=== PATIENT | female | born 1950 | race Caucasian/White ===

== ENCOUNTER 2023-08-26 14:18 | Inpatient (IN) | payer OTHER, MEDICAID ==
[~2023-08-26] VITALS: Ht 162.6 cm; Wt 49.9 kg
[2023-08-26 14:23] VITALS: BP 118/98; PULSE 98; RESP 16; TEMP 98; O2SAT 97
[2023-08-26 15:27] LABS: BASOPHILS % (AUTO) 0.4 % (0.0-2.0); EOSINOPHILS # (AUTO) 0.1 K/uL (0-0.4); EOSINOPHILS % (AUTO) 0.7 % (0.0-4.0); HEMATOCRIT 26.7 % (36-48); HEMOGLOBIN 8.6 g/dL (12.0-16.0); LYMPHOCYTES # (AUTO) 1.3 K/uL (2.5-16.5); LYMPHOCYTES % (AUTO) 11.7 % (20.5-51.1); MEAN CORPUSCULAR HEMOGLOBIN 26 pg (27-31); MEAN CORPUSCULAR HGB CONC 32 g/dL (33-37); MONOCYTES # (AUTO) 0.9 K/uL (0.8-1.0); MONOCYTES % (AUTO) 8.1 % (1.7-9.3); NEUTROPHILS # (AUTO) 8.9 K/uL (1.8-7.7); NEUTROPHILS % (AUTO) 79.1 % (42.2-75.2); PLATELET COUNT (AUTO) 377 K/uL (140-450); RED BLOOD CELL COUNT(AUTO) 3.26 MIL/uL (4.20-5.40); RED CELL DISTRIBUTION WIDTH 19.7 % (11.6-13.7); WHITE BLOOD COUNT (AUTO) 11.2 K/uL (4.8-10.8)
[2023-08-26 15:42] LABS: INR 1.03 (0.8-1.2); PARTIAL THROMBOPLASTIN TIME 26.5 secs (22-35.6); PROTHROMBIN TIME 10.8 secs (10.8-13.4)
[2023-08-26 15:48] LABS: ANION GAP 16.3 (8-16); CALCIUM 10.3 mg/dL (8.5-10.1); CARBON DIOXIDE 19.2 mmol/L (21-32); CHLORIDE 104 mmol/L (98-107); GLUCOSE 99 mg/dL (74-106); POTASSIUM 4.5 mmol/L (3.5-5.1); SODIUM SERUM 135 mmol/L (136-145); UREA NITROGEN, BLOOD 54 mg/dL (7-18)
[2023-08-26 15:49] LABS: ALANINE AMINOTRANSFERASE 14 U/L (12-78); ALBUMIN 1.8 g/dL (3.4-5.0); ALKALINE PHOSPHATASE 75 U/L (50-136); ASPARTATE AMINOTRANSFERASE 27 U/L (15-37); BILIRUBIN,DIRECT 0.1 mg/dL (0.0-0.3); TOTAL BILIRUBIN 0.4 mg/dL (0.0-1.0); TOTAL PROTEIN, SERUM 6.7 g/dL (6.4-8.2)
[2023-08-26] MEDS: LORazepam 1 MG TAB PO ONE (18:17)
[2023-08-26] MEDS: NACL 0.9% 1,000 ML IV ONE (18:57)
[2023-08-26] MEDS ORDERED: DOCU-299 PO (19:12)
[2023-08-26] MEDS ORDERED: ATRN INH (19:12)
[2023-08-26] MEDS ORDERED: AMOX500C25 PO (19:12)
[2023-08-26] MEDS ORDERED: HYOS-83 PO (19:12)
[2023-08-26] MEDS ORDERED: ONDA-188 PO (19:12)
[2023-08-26] MEDS ORDERED: TYL650S RC (19:12)
[2023-08-26] MEDS ORDERED: [UNRECOGNIZED DRUG - CODE] PO (19:12)
[2023-08-26] MEDS ORDERED: LORA-476 PO (19:12)
[2023-08-26] MEDS ORDERED: BISA-279 RC (19:12)
[2023-08-26] MEDS ORDERED: [UNRECOGNIZED DRUG - CODE] PO (19:12)
[2023-08-26 19:45] LABS: APPEARANCE,URINE SL CLOUDY (CLEAR); BILIRUBIN,URINE NEGATIVE (NEGATIVE); BLOOD, URINE TRACE-I (NEGATIVE); LEUKOCYTE ESTERASE ,URINE NEGATIVE (NEGATIVE); NITRITE, URINE NEGATIVE (NEGATIVE); PROTEIN,URINE TRACE (NEGATIVE); UGLUCOSE NEGATIVE (NEGATIVE); UROBILINOGEN,URINE 0.2 EU/dL (0.2 - 1)
[2023-08-26 19:46] LABS: COLOR,URINE AMBER (YELLOW)
[2023-08-26 19:56] LABS: BACTERIA,URINE FEW /HPF (None Seen); RBC,URINE 0-5 /HPF (0-5); SQUAMOUS EPITHELIAL CELL,UR 4-10 (MOD) /LPF (0-3 (FEW)); WBC,URINE 0-5 /HPF (0-5)
[2023-08-26 20:14] LABS: BASOPHILS % (AUTO) 0.4 % (0.0-2.0); EOSINOPHILS % (AUTO) 0.4 % (0.0-4.0); HEMATOCRIT 26.8 % (36-48); HEMOGLOBIN 8.3 g/dL (12.0-16.0); LYMPHOCYTES # (AUTO) 1.6 K/uL (2.5-16.5); LYMPHOCYTES % (AUTO) 13.5 % (20.5-51.1); MEAN CORPUSCULAR HEMOGLOBIN 27 pg (27-31); MEAN CORPUSCULAR HGB CONC 31 g/dL (33-37); MEAN CORPUSCULAR VOLUME 85.4 fL (80-94); MONOCYTES % (AUTO) 8.6 % (1.7-9.3); NEUTROPHILS # (AUTO) 8.9 K/uL (1.8-7.7); NEUTROPHILS % (AUTO) 77.1 % (42.2-75.2); PLATELET COUNT (AUTO) 335 K/uL (140-450); RED BLOOD CELL COUNT(AUTO) 3.14 MIL/uL (4.20-5.40); RED CELL DISTRIBUTION WIDTH 20.3 % (11.6-13.7); WHITE BLOOD COUNT (AUTO) 11.5 K/uL (4.8-10.8)
[2023-08-26 20:29] LABS: ANION GAP 16.9 (8-16); CALCIUM 10.5 mg/dL (8.5-10.1); CARBON DIOXIDE 16.7 mmol/L (21-32); CHLORIDE 105 mmol/L (98-107); CREATININE 1.9 mg/dL (0.6-1.3); GLUCOSE 101 mg/dL (74-106); POTASSIUM 4.6 mmol/L (3.5-5.1); SODIUM SERUM 134 mmol/L (136-145); UREA NITROGEN, BLOOD 53 mg/dL (7-18)
[2023-08-26 21:43] VITALS: PULSE 81
[2023-08-26 21:45] VITALS: PULSE 88; RESP 18; O2SAT 97
[2023-08-27] VITALS: BP 126/53; PULSE 76; PULSE 79; RESP 17; TEMP 98.6; O2SAT 96
[2023-08-27] MEDS ORDERED: HYDROcodone/APAP 5/325 MG 1 TAB TAB PO PRN (03:45)
[2023-08-27 04:00] VITALS: BP 153/60; PULSE 75; PULSE 85; RESP 18; TEMP 98.2; O2SAT 97
[2023-08-27 08:00] VITALS: BP 138/63; PULSE 77; PULSE 78; PULSE 85; RESP 18; TEMP 98.3; O2SAT 96; O2SAT 97
[2023-08-27] MEDS: ACETAMINOPHEN 325 MG TAB PO PRN (09:43)
[2023-08-27] MEDS: LIDOCAINE 5% 1 EA PATCH TP SCH (09:45)
[2023-08-27 12:00] VITALS: BP 146/56; PULSE 75; PULSE 83; RESP 19; TEMP 98; O2SAT 96
[2023-08-27] MEDS ORDERED: DEXT 5% IV SCH (12:35)
[2023-08-27] MEDS ORDERED: [UNRECOGNIZED DRUG - OTHER] IV SCH (12:35)
[2023-08-27] MEDS: DEXT 5% / NACL 0.45% 1,000 ML IV SCH (14:00)
[2023-08-27 16:00] VITALS: BP 136/60; PULSE 77; PULSE 79; RESP 19; TEMP 98; O2SAT 96
[2023-08-27 18:30] LABS: BASOPHILS % (AUTO) 0.3 % (0.0-2.0); EOSINOPHILS # (AUTO) 0.1 K/uL (0-0.4); EOSINOPHILS % (AUTO) 1.3 % (0.0-4.0); HEMATOCRIT 24.3 % (36-48); HEMOGLOBIN 7.8 g/dL (12.0-16.0); LYMPHOCYTES # (AUTO) 1.7 K/uL (2.5-16.5); LYMPHOCYTES % (AUTO) 20.6 % (20.5-51.1); MEAN CORPUSCULAR HEMOGLOBIN 27 pg (27-31); MEAN CORPUSCULAR HGB CONC 32 g/dL (33-37); MEAN CORPUSCULAR VOLUME 82.4 fL (80-94); MONOCYTES # (AUTO) 0.8 K/uL (0.8-1.0); MONOCYTES % (AUTO) 8.9 % (1.7-9.3); NEUTROPHILS # (AUTO) 5.8 K/uL (1.8-7.7); NEUTROPHILS % (AUTO) 68.9 % (42.2-75.2); PLATELET COUNT (AUTO) 315 K/uL (140-450); RED BLOOD CELL COUNT(AUTO) 2.94 MIL/uL (4.20-5.40); RED CELL DISTRIBUTION WIDTH 19.9 % (11.6-13.7); WHITE BLOOD COUNT (AUTO) 8.5 K/uL (4.8-10.8)
[2023-08-27 18:40] LABS: CALCIUM 10.4 mg/dL (8.5-10.1); CARBON DIOXIDE 18.3 mmol/L (21-32); CHLORIDE 109 mmol/L (98-107); CREATININE 1.8 mg/dL (0.6-1.3); GLUCOSE 99 mg/dL (74-106); POTASSIUM 4.3 mmol/L (3.5-5.1); SODIUM SERUM 138 mmol/L (136-145); UREA NITROGEN, BLOOD 57 mg/dL (7-18)
[2023-08-27 20:00] VITALS: BP 154/64; PULSE 80; PULSE 82; RESP 19; TEMP 98.9; O2SAT 97
[2023-08-27] MEDS: GABAPENTIN 100 MG CAP PO SCH (20:21)
[2023-08-28] VITALS: BP 143/57; PULSE 69; PULSE 71; RESP 19; TEMP 97.6; O2SAT 97
[2023-08-28 04:00] VITALS: BP 134/52; PULSE 67; RESP 20; TEMP 98.3; O2SAT 97
[2023-08-28 08:00] VITALS: BP 169/72; PULSE 71; RESP 20; TEMP 97.6; O2SAT 97; O2SAT 98
[2023-08-28 08:52] VITALS: PULSE 71; RESP 20; O2SAT 97
[2023-08-28] MEDS ORDERED: BUDESONIDE 0.5 MG/2 ML NEBU INH SCH (09:00)
[2023-08-28] MEDS: BUDESONIDE INH SCH (09:00)
[2023-08-28] MEDS: FORMOTEROL INH SCH (09:00)
[2023-08-28] MEDS: GLYCOPYRROLATE INH SCH (09:00)
[2023-08-28 11:21] LABS: BASOPHILS % (AUTO) 0.5 % (0.0-2.0); EOSINOPHILS # (AUTO) 0.2 K/uL (0-0.4); EOSINOPHILS % (AUTO) 2.7 % (0.0-4.0); HEMATOCRIT 22.7 % (36-48); HEMOGLOBIN 7.4 g/dL (12.0-16.0); LYMPHOCYTES # (AUTO) 1.4 K/uL (2.5-16.5); LYMPHOCYTES % (AUTO) 18.7 % (20.5-51.1); MEAN CORPUSCULAR HEMOGLOBIN 27 pg (27-31); MEAN CORPUSCULAR HGB CONC 33 g/dL (33-37); MEAN CORPUSCULAR VOLUME 83.1 fL (80-94); MONOCYTES # (AUTO) 0.8 K/uL (0.8-1.0); MONOCYTES % (AUTO) 10.8 % (1.7-9.3); NEUTROPHILS # (AUTO) 5.1 K/uL (1.8-7.7); NEUTROPHILS % (AUTO) 67.3 % (42.2-75.2); PLATELET COUNT (AUTO) 312 K/uL (140-450); RED BLOOD CELL COUNT(AUTO) 2.73 MIL/uL (4.20-5.40); WHITE BLOOD COUNT (AUTO) 7.5 K/uL (4.8-10.8)
[2023-08-28 11:36] LABS: ANION GAP 13.4 (8-16); CALCIUM 9.9 mg/dL (8.5-10.1); CARBON DIOXIDE 19.6 mmol/L (21-32); CHLORIDE 108 mmol/L (98-107); CREATININE 1.8 mg/dL (0.6-1.3); GLUCOSE 104 mg/dL (74-106); SODIUM SERUM 137 mmol/L (136-145); UREA NITROGEN, BLOOD 56 mg/dL (7-18)
[2023-08-28 12:00] VITALS: PULSE 68
[2023-08-28] MEDS ORDERED: NON ADHERENT DRESSING TP PRN (12:45)
[2023-08-28] MEDS ORDERED: FOAM DRESSING TP PRN (12:45)
[2023-08-28] MEDS: HYDRAGUARD CREAM TP SCH (13:02)
[2023-08-28] MEDS: GAUZE TP SCH (13:02)
[2023-08-28] MEDS: FOAM DRESSING TP SCH (13:02)
[2023-08-28] MEDS: NON ADHERENT DRESSING TP SCH (13:03)
[2023-08-28] MEDS ORDERED: traMADol 50 MG TAB PO PRN (13:20)
[2023-08-28] MEDS ORDERED: TRAM50TA3 PO (13:52)
[2023-08-28] MEDS ORDERED: MIRT-120 PO (13:52)
[2023-08-28 14:14] VITALS: BP 131/63; RESP 20; TEMP 97.5
[2023-08-28] MEDS ORDERED: MIRTAZAPINE 15 MG TAB PO SCH (21:00)
[2023-08-29 09:08] LABS: PARATHYROID CALCIUM 9.5 mg/dL (8.7-10.3)
[2023-08-29 15:56] LABS: VITAMIN D, 25-HYDROXY 26.8 ng/mL (30.0-100.0)
== END 2023-08-28 15:10 | disposition home or self-care (01) | DRG 917 ==
LOC: MED 14:18 → MMU 18:03 → MTU 20:56
PROVIDERS: ADMIT Internal Medicine; ATTEND Internal Medicine
DX: T40.2X1A Poisoning by other opioids, accidental (unintentional), initial encounter (principal); E43 Unspecified severe protein-calorie malnutrition; G92.8 Other toxic encephalopathy; Z68.1 Body mass index [BMI] 19.9 or less, adult; N18.30 Chronic kidney disease, stage 3 unspecified; M81.0 Age-related osteoporosis without current pathological fracture; E11.22 Type 2 diabetes mellitus with diabetic chronic kidney disease; E83.52 Hypercalcemia; I12.9 Hypertensive chronic kidney disease with stage 1 through stage 4 chronic kidney disease, or unspecified chronic kidney disease; E11.40 Type 2 diabetes mellitus with diabetic neuropathy, unspecified; J44.9 Chronic obstructive pulmonary disease, unspecified; G89.4 Chronic pain syndrome; Z51.5 Encounter for palliative care; Z79.899 Other long term (current) drug therapy
CPT/HCPCS: 36415; 70450; 71045; 80048; 80076; 81001; 82306; 82948; 83880; 83970; 84484; 85025; 85610; 85730; 87081; 93005; 99285